=== PATIENT | female | born 1955 | race American Indian/Alaskan Native ===

== ENCOUNTER 2020-01-27 06:16 | Day surgery (SDC) | payer BC, OTHER ==
[~2020-01-27] VITALS: Ht 152.4 cm; Wt 53.5 kg
[~2020-01-27 06:16] MED LIST: ADDAPRIN200 MG PO; ADULT LOW DOSE81 MG PO; ALEVE220 M1 PO; COLESEVELAM HC625 MG PO; FENOFIBRATE160 MG PO; FIBER0.52 GM PO; FOSAMAX70 MG PO; GLARGINE SUB-Q; GLIPIZIDE XL10 MG PO; GLUCOPHAGE850 MG PO; LISINOPRIL2.5 MG PO; MAG-OXIDE400 MG PO; MECLIZINE HCL25 MG PO; NIACIN250 M1 PO; OMEGA 3 1,0001 EACH PO; ROSUVASTATIN CA20 MG PO; VITAMIN D5000 UNIT PO; WELCHOL625 MG PO; ZOCOR20 MG PO; ZOFRAN ODT4 MG SL
--- NOTE | 2020-01-27 07:33 | NUR ---
SWITCHED FLUID TO D5LR PER DR CHAUDHRY FOR A BLOOD GLUCOSE LEVEL OF 78
--- NOTE | 2020-01-27 08:59 | NUR ---
01/27/20 0859 Sheets,Vidhya 0843 PT ARRIVED TO PACU ON 2L VIA NC, PT ASLEEP AND PASSING SMALL AMOUNT OF GAS. VSS. 0846 CBG 352, D5LR STOPPED AND AWARE. PT WAKES EASILY AND DENIES PAIN AND NAUSEA.
--- NOTE | 2020-01-27 10:18 | OR ---
[facility] [address] [place], [place] [address] Signed DATE OF OPERATION: 01/27/2020 SURGEON: Rosa Chaudhry MD PREOPERATIVE DIAGNOSES: 1. Mother with colonic polyps in her 60s. 2. History of colonic polyps, age 65. 3. Internal hemorrhoids. POSTOPERATIVE DIAGNOSES: 1. Small internal hemorrhoids. 2. 3 mm polyps x2 at 25 and 20 cm. 3. 3 mm polyp at 3 cm. PROCEDURE: Colonoscopy with hot biopsy. ESTIMATED BLOOD LOSS: None. INDICATIONS: Kika is a 64-year-old female who returns for a 5-year followup colonoscopy. We know her mother had colonic polyps in her 60s and her sister just had colonic polyps removed at age 64. Kika has had internal hemorrhoids. She has no lower GI complaints. In the office, I gave her a pamphlet on colonoscopy and we reviewed the nature of the test along with the risks including, but not limited to gas bloating, crampy abdominal pain, bleeding, perforation requiring surgery, and missed diagnosis. She also recalls the need for IV conscious sedation. She has always done well with Versed and fentanyl. She has expressed understanding and wished to proceed. DESCRIPTION OF PROCEDURE: Kika was taken into our endoscopy suite and placed in the left lateral decubitus position. She was given 3 mg of Versed and 100 mcg of fentanyl to cover the case. A digital rectal exam was performed and this was unremarkable. The adult colonoscope was introduced and advanced all around into the cecum under direct visualization of camera without difficulty. Her prep was quite excellent. The scope was slowly withdrawn. We could easily see the ileocecal valve and the appendiceal orifice. The scope was slowly withdrawn. We found 2 tiny polyps backed in her distal sigmoid colon. They were easily removed with a hot biopsy forceps. There was no diverticulosis. The rectum was unremarkable except for a tiny polyp just at the top of the anal canal. It was easily Electronically Signed By: ROSA CHAUDHRY MD 01/27/20 1018 PATIENT NAME: KIKA FORRESTER OPERATIVE REPORT DATE OF : 57 REPORT #: [id number] PHYSICIAN: ROSA CHAUDHRY MD PCP: GABRIEL AGUILAR MD REPORT IS CONFIDENTIAL AND NOT TO BE RELEASED WITHOUT AUTHORIZATION [facility] [address] [place] [id number] Signed removed with a hot biopsy forceps. Again, she has small internal hemorrhoid columns. After this, the gas was suctioned out and the colonoscope removed. Kika tolerated procedure quite well. RECOMMENDATIONS: Kika will follow up in 7 to 14 days to review her results. She will stay on the 5-year plan because of her family history. MD LUCILA Chambers/MAGNOL /[id number] cc: MD Rosa Baker MD Copies: GABRIEL AGUILAR MD, ANDREW L MD ~ Electronically Signed By: ROSA CHAUDHRY MD 01/27/20 1018 PATIENT NAME: KIKA FORRESTER KIKI OPERATIVE REPORT DATE OF : 57 REPORT #: [id number] PHYSICIAN: ROSA CHAUDHRY MD PCP: GABRIEL AGUILAR MD REPORT IS CONFIDENTIAL AND NOT TO BE RELEASED WITHOUT AUTHORIZATION
--- NOTE | 2020-01-27 11:50 | NUR ---
PT ALERT, ORIENTED AND HAS HER SISTER WAITING FOR HER FOLLOWING DC. PT HAS HAD PREVIOUS SCOPES SEEMS PREPARED, ALL QUESTIONS ASKED WERE ANSWERED. BLESSING GIVEN. WILL FOLLOW
--- NOTE | 2020-01-28 17:15 | PATH ---
[facility] [address] [place], [place] [address] Signed SPECIMEN(S): A COLON POLYP AT 25 CM SPECIMEN(S): B COLON POLYP AT 3 CM SPECIMEN SOURCE: A. COLON POLYP AT 25 CM B. COLON POLYP AT 3 CM CLINICAL HISTORY: Colonoscopy. Preop: Family history of polyps. Postop: Colon and rectal polyps, internal hemorrhoids. MICROSCOPIC DESCRIPTION: Histologic sections of all submitted blocks are examined by light microscopy. These findings, together with the gross examination, support the pathologic diagnosis. FINAL PATHOLOGIC DIAGNOSIS: A. Colon, polyp at 25 cm, polypectomy: - Fragments of colonic mucosa with no histopathologic abnormality. - Negative for dysplasia or malignancy. B. Colon, polyp at 3 cm, polypectomy: - Hyperplastic polyp. - Negative for dysplasia or malignancy. NAL:cml:C2NR GROSS DESCRIPTION: Two specimens are received in two containers, labeled "." A. The specimen, labeled ", colon polyp at 25 cm," is received in formalin and consists of two dobson soft tissue fragments that measure 0.1 cm in greatest dimension. The specimen is entirely submitted in cassette (A1). B. The specimen, labeled ", colon polyp at 3 cm," is received in formalin and consists of one dobson soft tissue fragment that measures 0.1 cm in greatest dimension. The specimen is entirely submitted in cassette (B1). JS (under the direct supervision of a pathologist) The Gross Description was prepared using a voice recognition system. The report was reviewed for accuracy; however, sound-alike word errors, addition and/or deletions may occur. If there is any question about this report, please contact Client Services. PERFORMING LABORATORY: PATIENT NAME: LUNA FORRESTER PATHOLOGY DATE OF : 57 REPORT #: [id number] PHYSICIAN: YAO PATHOLOGY PCP: GABRIEL AGUILAR MD REPORT IS CONFIDENTIAL AND NOT TO BE RELEASED WITHOUT AUTHORIZATION [facility] [address] [place] [address] Signed The technical component was performed by [employer] [place] [address] (Instructional Support Services Director: Lorraine Morgan MD; CLIA# [id number]). Professional interpretation was performed by [employer] [facility], [address] [address] (CLIA# [id number]). Diagnostician: Fanny Urbano MD Pathologist Electronically Signed 01/28/2020 Copies: ~ PATIENT NAME: LUNA FORRESTER PATHOLOGY DATE OF : 57 REPORT #: [id number] PHYSICIAN: YAO PATHOLOGY PCP: GABRIEL AGUILAR MD REPORT IS CONFIDENTIAL AND NOT TO BE RELEASED WITHOUT AUTHORIZATION
== END 2020-01-27 09:40 | disposition home or self-care (01) ==
LOC: DS 06:16 → OPS 06:16 → DS 06:45 → OPS 09:40 → DS 09:45 → OPS 09:45
PROVIDERS: ATTEND Colon & Rectal Surgery
PROC: 0DBE8ZZ Excision of Large Intestine, Via Natural or Artificial Opening Endoscopic (ICD-10-PCS; principal; 2020-01-27 09:45)
DX: K63.5 Polyp of colon (principal); K64.8 Other hemorrhoids; I10 Essential (primary) hypertension; E11.9 Type 2 diabetes mellitus without complications; K21.9 Gastro-esophageal reflux disease without esophagitis; E55.9 Vitamin D deficiency, unspecified; M81.0 Age-related osteoporosis without current pathological fracture; F32.9 Major depressive disorder, single episode, unspecified; Z83.71 Family history of colonic polyps; Z86.010 Personal history of colon polyps; Z79.899 Other long term (current) drug therapy; Z79.82 Long term (current) use of aspirin; Z79.84 Long term (current) use of oral hypoglycemic drugs; Z88.5 Allergy status to narcotic agent; Z88.7 Allergy status to serum and vaccine
CPT/HCPCS: 99153; G0500; J2250; J3010; J7121

== ENCOUNTER 2024-06-16 15:01 | Emergency (ER) | payer OTHER, BC, MEDICARE ==
[~2024-06-16] VITALS: Ht 152.4 cm; Wt 54.0 kg
[2024-06-16 18:58] VITALS: BP 151/67
== END 2024-06-16 18:58 | disposition home or self-care (01) ==
LOC: ED 15:01
DX: S60.811A Abrasion of right wrist, initial encounter (principal); E11.9 Type 2 diabetes mellitus without complications; Z88.7 Allergy status to serum and vaccine; Z88.5 Allergy status to narcotic agent; Z88.8 Allergy status to other drugs, medicaments and biological substances; Z79.82 Long term (current) use of aspirin; Z79.83 Long term (current) use of bisphosphonates; Z79.899 Other long term (current) drug therapy; W26.0XXA Contact with knife, initial encounter; Y93.G1 Activity, food preparation and clean up
CPT/HCPCS: 99283

== ENCOUNTER 2024-11-26 16:13 | Inpatient (IN) | payer BC, MEDICARE, OTHER ==
[~2024-11-26] VITALS: Ht 152.4 cm; Wt 49.5 kg
--- NOTE | ~2024-11-26 | OR ---
[facility] [address] [place], [place] [address] Draft DATE OF OPERATION: 11/27/2024 SURGEON: Lenny De Jesus MD PREOPERATIVE DIAGNOSIS: Recent hematemesis and profound anemia, hematocrit 25, platelets 156,000. POSTOPERATIVE DIAGNOSES: 1. Grade 4 esophageal varices distal one-half of the esophagus. 2. Mild proximal gastritis and diffuse gastritis without active bleeding or ulceration. PROCEDURE: Esophagogastroduodenoscopy with biopsy. ANESTHESIA: Intravenous sedation, propofol infusion. Nura Bose CRNA. INDICATION: This 69-year-old Citizen Of [place] woman is a patient of Dr. Cao at [facility], who was admitted yesterday through the emergency room having presented with dark black coffee-ground emesis as well as subsequent melena. Her hematocrit was noted to be 15. She was transfused 2 units of packed red cells, now hematocrit of 26. Platelet count was 156,000. The patient has had at least 10 years of epigastric and upper abdominal pain. She does not recall any prior upper endoscopy, though she has had colonoscopy in the past few years by Dr. Jonatan Glass. She had only hemorrhoids at that time. She is admitted at this time to undergo upper endoscopy to better characterize her problem of hematemesis and anemia. She understands the risk of bleeding, infection, and perforation related to upper endoscopy and wished to proceed. FINDINGS: Grade 4 esophageal varices were noted dominantly in the lower one-third of the esophagus. None appeared to have been bleeding. The stomach itself had diffuse gastritis most notably in the proximal stomach. CLOtest biopsy at 50 minutes was equivocal, though may well be positive for H pylori. The duodenum was normal overall. DESCRIPTION OF PROCEDURE: The patient was brought to the endoscopy suite and placed in lateral decubitus position, given intravenous sedation by the bead filler with propofol infusional sedation technique. A bite block was placed. PATIENT NAME: LUNA FORRESTER OPERATIVE REPORT DATE OF : 57 REPORT #: [id number] PHYSICIAN: LENNY DE JESUS MD PCP: GABRIEL CAO MD REPORT IS CONFIDENTIAL AND NOT TO BE RELEASED WITHOUT AUTHORIZATION [facility] [address] [place], [place] [address] Draft An Olympus video upper endoscope was passed in the hypopharynx. The vocal cords appeared normal. There was no sign of varices of the valleculae. The scope was advanced in the esophagus. The proximal esophagus appeared reasonably normal, though in the distal half to one-third, serpiginous varices were noted. The scope was advanced to the stomach, which was insufflated with air. Rugal folds were normal. There was no evidence of active blood or bleeding or clot at this time, though she did have diffuse gastritis. The scope was passed through the pylorus into the duodenum. Biopsies were taken of the duodenum that appeared reasonably normal. Scope was withdrawn and biopsies then taken of the antrum and also in the proximal stomach for MISTI and pathologic assessment. There were no gastric varices. The scope was withdrawn confirming distal esophageal varices throughout. Additional biopsies were deemed quite inadvisable obviously. Further withdrawal of scope showed no other abnormality. CONCLUDING DIAGNOSES: Coffee-ground emesis and anemia may have been related to diffuse gastritis cause or possibly a varix that caused bleeding. Right now, no sign of active bleeding including the varices. PLAN: We will initiate PPI medication orally on a b.i.d. basis. Consider also Carafate slurry 1 g p.o. q.i.d. Consideration of a beta jess to decrease portal venous hypertension and consideration of underlying cause that may give portal hypertension including cirrhosis of the liver, etc. We will review this with Dr. Luna, her hospitalist. MD ADINA Das/MODL /[id number] cc: MD David Baker MD Copies: GABRIEL CAO MD PATIENT NAME: LUNA FORRESTER OPERATIVE REPORT DATE OF : 57 REPORT #: [id number] PHYSICIAN: LENNY DE JESUS MD PCP: GABRIEL CAO MD REPORT IS CONFIDENTIAL AND NOT TO BE RELEASED WITHOUT AUTHORIZATION [facility] [address] [place] [address] [place], [place] [address] Draft ~ PATIENT NAME: LUNA FORRESTER OPERATIVE REPORT DATE OF : 57 REPORT #: [id number] PHYSICIAN: LENNY DE JESUS MD PCP: GABRIEL CAO MD REPORT IS CONFIDENTIAL AND NOT TO BE RELEASED WITHOUT AUTHORIZATION
[~2024-11-26 16:13] MED LIST changes: -GLARGINE SUB-Q; -GLUCOPHAGE850 MG PO; +METFORMIN HCL500 MG PO; +TOUJEO MAX300 UNIT/1 SUB-Q
[2024-11-26] MEDS ORDERED: PANTOPRAZOLE SODIUM 40 MG/10 ML VIAL IV ONE (16:30)
[2024-11-26] MEDS ORDERED: NOVOLOG FL100 UNIT/1 SUB-Q (16:41)
[2024-11-26] MEDS ORDERED: GABAPENTIN100 MG PO (16:41)
[2024-11-26] MEDS ORDERED: ATORVASTATIN CA40 MG PO (16:42)
[2024-11-26 16:49] LABS: BASOPHILS 1.2 % (0.1-1.2); EOSINOPHILS 1.2 % (0.7-5.8); LYMPHOCYTES 30.8 % (19.3-51.7); MCH 24.3 PG (25.6-32.2); MCHC 31.5 g/dL (32.2-35.5); MCV 77.0 fL (79.4-94.8); MONOCYTES 5.2 % (4.7-12.5); NEUTROPHILS 61.2 % (34.0-71.1); RBC 2.39 M/uL (3.93-5.22)
[2024-11-26 16:59] LABS: INR 0.95 (0.80-1.30); PROTIME 12.0 Sec (11.2-14.2)
[2024-11-26 17:36] LABS: ABO O; RH POSITIVE
[2024-11-26 17:36] LABS: ABO O; ANTIBODY SCREEN NEGATIVE; IS CROSSMATCH COMPATIBLE; RH POSITIVE
[2024-11-26 17:39] LABS: ALT (SGPT) 39.0 U/L (14-59); AST (SGOT) 35.0 U/L (15-37); GLOMERULAR FILTRATION RATE,EST 40.0 mL/min (>60); PROTEIN, TOTAL 7.4 g/dL (6.4-8.2); UREA NITROGEN 25.0 mg/dL (7-18)
[2024-11-26] MEDS ORDERED: SODIUM CHLORIDE 0.9% 1,000 ML IV PRN (18:00)
[2024-11-26] MEDS ORDERED: Insulin Regular, Human 100 UNIT/ML ML IV ONE (18:00)
[2024-11-26] MEDS ORDERED: IBLOOD GLUCOSE TEST STRIP 1 EA TEST XX PRN (18:15)
[2024-11-26] MEDS ORDERED: GLUCAGON,HUMAN RECOMBINANT 1 MG/ML VIAL SUB-Q PRN (18:15)
[2024-11-26] MEDS ORDERED: DEXTROSE 5% 1,000 ML IV PRN (18:15)
[2024-11-26] MEDS ORDERED: DEXTROSE 50% 50 ML SYR IV PRN ×2 (18:15)
[2024-11-26 19:46] VITALS: BP 130/60
--- NOTE | 2024-11-26 19:50 | NUR ---
pt ARRIVED TO THE FLOOR VIA STRETCHER. pt PRBC'S INFUSING. pt UP TO THE BSC. ASSESSMENT AND ADMISSION DONE. VITAL SIGNS DONE. pt ABLE TO TRANSFER TO THE BED VIA SBA. ICE WATER GIVEN TO THE pt. pt NPO AT MIDNIGHT. IV ASSESSED, WNL. pt DENIES ANY OTHER NEEDS AT THIS TIME. CALL LIGHT WITHIN REACH.
--- NOTE | 2024-11-26 20:22 | NUR ---
pt PRBC'S FINISHED AT 2014. NO S/SX OF TRASFUSION REACTION. VSS. ICE WATER PROVIDED. pt DENIES ANY OTHER NEEDS AT THIS TIME. CALL LIGHT WITHIN REACH. IV ASSESSED, WNL.
[2024-11-26 20:30] VITALS: BP 130/60
--- NOTE | 2024-11-26 20:50 | NUR ---
THIS RN SPOKE TO THE MD ABOUT THE pt ORDERS. MD WENT IN TO SPEAK TO pt AND PLACED NEW ORDERS IN [facility]. pt DENIES ANY OTHER NEEDS AT THIS TIME. CALL LIGHT WITHIN REACH.
[2024-11-26] MEDS ORDERED: GABAPENTIN 100 MG CAP PO SCH (21:00)
[2024-11-26] MEDS ORDERED: IBLOOD GLUCOSE TEST STRIP 1 EA TEST VI SCH (21:00)
[2024-11-26 21:13] LABS: BASOPHILS 1.0 % (0.1-1.2); EOSINOPHILS 1.7 % (0.7-5.8); LYMPHOCYTES 32.2 % (19.3-51.7); MCH 24.6 PG (25.6-32.2); MCHC 31.5 g/dL (32.2-35.5); MCV 78.1 fL (79.4-94.8); MONOCYTES 4.6 % (4.7-12.5); NEUTROPHILS 60.3 % (34.0-71.1); RBC 3.01 M/uL (3.93-5.22)
--- NOTE | 2024-11-26 21:30 | NUR ---
IN RM TO ADMINISTER pt NIGHT TIME MEDS. pt ABLE TO TAKE PO MEDS. pt DENIES ANY OTHER NEEDS AT THIS TIME. CALL LIGHT WITHIN REACH.
[2024-11-26 21:31] LABS: ALT (SGPT) 33.0 U/L (14-59); AST (SGOT) 31.0 U/L (15-37); GLOMERULAR FILTRATION RATE,EST 49.0 mL/min (>60); PROTEIN, TOTAL 7.2 g/dL (6.4-8.2); UREA NITROGEN 24.0 mg/dL (7-18)
--- NOTE | 2024-11-26 23:08 | NUR ---
pt RESTING IN THE BED WITH EYES CLOSED ON RIGHT SIDE. RR EVEN AND UNLABORED. CALL LIGHT WITHIN REACH.
--- NOTE | 2024-11-26 23:48 | NUR ---
pt UP TO THE BR. WATER TAKEN AWAY DUE TO pt BEING NPO AT MIDNIGHT. . pt DENIES DIZINESS WITH STANDING. pt DENIES ANY OTHER NEEDS AT THIS TIME. CALL LIGHT WITHIN REACH.
[2024-11-27] VITALS (12 sets, daily range): BP systolic 124–136; BP diastolic 52–63
--- NOTE | 2024-11-27 01:02 | NUR ---
in rm to do vital signs and assessment. PT resting in the bed. bowel tones active. no emesis or BM at this time. PT denies any other needs at this time. call light within reach.
[2024-11-27 01:03] LABS: BASOPHILS 1.0 % (0.1-1.2); EOSINOPHILS 2.2 % (0.7-5.8); LYMPHOCYTES 33.9 % (19.3-51.7); MCH 24.5 PG (25.6-32.2); MCHC 31.8 g/dL (32.2-35.5); MCV 76.9 fL (79.4-94.8); MONOCYTES 5.1 % (4.7-12.5); NEUTROPHILS 57.3 % (34.0-71.1); RBC 2.86 M/uL (3.93-5.22)
[2024-11-27 01:37] LABS: IS CROSSMATCH COMPATIBLE
[2024-11-27 01:55] LABS: UREA NITROGEN 21.0 mg/dL (7-18)
[2024-11-27 02:19] LABS: GLOMERULAR FILTRATION RATE,EST 55.0 mL/min (>60)
--- NOTE | 2024-11-27 02:45 | NUR ---
pt RESTING IN THE BED. PRBC'S STARTED PER MD ORDER. pt HAS NO S/SX OF INFUSION REACTION. NO OTHER NEEDS AT THIS TIME. CALL LIGHT WITHIN REACH.
--- NOTE | 2024-11-27 05:05 | NUR ---
pt DONE WITH SECOND UNIT OF PRBC'S. VITAL SIGNS DONE. NO S/SX OF TRANSFUSION REACTION. pt DENIES ANY OTHER NEEDS AT THIS TIME. CALL LIGHT WITHIN REACH.
[2024-11-27 05:51] LABS: BASOPHILS 1.4 % (0.1-1.2); EOSINOPHILS 2.8 % (0.7-5.8); LYMPHOCYTES 35.3 % (19.3-51.7); MCH 24.9 PG (25.6-32.2); MCHC 32.1 g/dL (32.2-35.5); MCV 77.5 fL (79.4-94.8); MONOCYTES 5.6 % (4.7-12.5); NEUTROPHILS 54.6 % (34.0-71.1); RBC 3.46 M/uL (3.93-5.22)
[2024-11-27 06:07] LABS: ALT (SGPT) 30.0 U/L (14-59); AST (SGOT) 29.0 U/L (15-37); GLOMERULAR FILTRATION RATE,EST 55.0 mL/min (>60); PROTEIN, TOTAL 6.9 g/dL (6.4-8.2); UREA NITROGEN 19.0 mg/dL (7-18)
--- NOTE | 2024-11-27 07:06 | NUR ---
Pt report received from GENIA Wayne. Pt is resting quietly in bed, awake and alert, oriented x4. Denies needs at this time. Side rails up x4, call light in reach. White board updated.
[2024-11-27] MEDS ORDERED: LACTATED RINGER'S 1,000 ML IV SCH (08:15)
--- NOTE | 2024-11-27 08:45 | NUR ---
INTO SEE PATIENT. PERSONAL HEALTH INFORMATION REVIEWED. PATIENT LIVES AT HOME WITH HER SISTER. NO STEPS INTO THE HOME. PATIENT DOES NOT USE ANY DME. PATIENT DRIVES AT BASELINE. PATIENT STATES THEY DO HAVE DIFFCULTY PAYING UTILITIES. LET PATIENT KNOW TO REACH OUT TO [facility] OR [facility] FOR ASSISTANCE. PATIENT STATES A FAMILY MEMBER WILL PICK HER UP AT TIME OF DISCHARGE.
--- NOTE | 2024-11-27 08:54 | NUR ---
PATIENT IS IN HER BED AT THIS TIME, MANAGER HEART FAILURE CHARTED VITALS AND I&O'S, CALL LIGHT WITH IN REACH AND NOTHING ELSE NEEDED AT THIS TIME.
--- NOTE | 2024-11-27 08:54 | NUR ---
THIS RN ASKED REGARDING AN EKG PRE SCOPE. MD WITH NO FURTHER ORDERS AT THIS TIME.
--- NOTE | 2024-11-27 08:55 | NUR ---
Dr. Luna in with pt. Pt verbalized understanding of consent that Dr. Bolton reviewed with her and signed the consent, this RN witnessed. LR on straight tubing is in room, LR at 125ml/hr per EMAR running on IV pump. IV protonix administered per emar. Pt family member in room. Urine specimen is needed (per order).
[2024-11-27] MEDS ORDERED: PANTOPRAZOLE SODIUM 40 MG/10 ML VIAL IV SCH (09:00)
--- NOTE | 2024-11-27 09:23 | NUR ---
UR CLINICAL REVIEW: 2 MN BO, MEETS INPT FOR GI BLEED AND DON. BLOOD TRANSFUSION, IV MEDICATIONS, TREND LABS, SURGICAL CONSULT, IV FLUIDS MEDICARE INPT 11/26/2024 @ 1802 ORDER MATCHES REG NO AUTH REQUIRED PER MEDICARE RULES PLAN TO DC TO HOME WHEN MEDICALLY STABLE.
[2024-11-27] MEDS ORDERED: PAIN RELIEF325 M1 PO (09:50)
[2024-11-27] MEDS ORDERED: PREVIDENT 500051 GM MM (09:51)
[2024-11-27] MEDS ORDERED: ARTIFICIAL TEAR15 M6 OU (09:51)
[2024-11-27] MEDS ORDERED: BIOTENE PBF473 ML MM (09:54)
--- NOTE | 2024-11-27 09:54 | NUR ---
MED REC COMPLETE
--- NOTE | 2024-11-27 10:49 | CONS ---
[facility] [address] [place], [place] [address] Signed DATE OF CONSULTATION: 11/27/2024 CONSULTING PHYSICIAN: Lenny De Jesus MD. REQUESTING PHYSICIAN: Dr. Luna. PROBLEM: Profound anemia and hematemesis. HISTORY OF PRESENT ILLNESS: This 69-year-old French woman has long-standing epigastric pain and "heartburn." Medications that she has taken for this in the past have been ineffective. She presented to the emergency room yesterday and was thoroughly evaluated by Dr. Bhakta, having felt poorly earlier in the day and an episode of vomiting and emesis which was "black colored." She also had later apparent melena. She has had symptoms particularly worse when eating for the past number of years. She has had issues with stool incontinence as well from time to time. She did undergo colonoscopy by Dr. Jonatan Glass showing only internal hemorrhoids. The patient takes aspirin 81 mg a day, but no other intensive NSAID use. She does not smoke. CURRENT MEDICINES: Include: 1. Gabapentin. 2. Insulin. 3. Atorvastatin. 4. Aspirin low-dose 81 mg. 5. Glucophage. 6. Solostar. REVIEW OF SYSTEMS: She denies any dysphagia. Denies any lower abdominal pain or diarrhea. She does have "heartburn" and epigastric pain perpetually. Admission, hematocrit was 18.4 with a platelet count of 156,000. Creatinine of 1.44. The patient has undergone a 2 unit blood transfusion and her lab study currently shows a hematocrit of 26.8, platelets 142,000. Coag studies show an INR of 0.95. Chem profile is normal, creatinine now 1.09, previously 1.20. Alkaline phosphatase is still elevated now at 306, previously 334. Electronically Signed By: LENNY DE JESUS MD 11/27/24 1049 PATIENT NAME: LUNA FORRESTER CONSULTATION DATE OF : 57 REPORT #: [id number] PHYSICIAN: LENNY DE JESUS MD PCP: GABRIEL AGUILAR MD REPORT IS CONFIDENTIAL AND NOT TO BE RELEASED WITHOUT AUTHORIZATION [facility] [address] [place], [place] [address] Signed PHYSICAL EXAMINATION: GENERAL: A relatively thin French woman who is alert and oriented without sign of diaphoresis. She is accompanied by her [id number]. Her BMI is 21.3. NECK: Trachea is midline. HEENT: Mucous membranes are moist. CHEST: Clear. HEART: Regular without murmur. ABDOMEN: Flat and soft and there is no focal mass or tenderness. She has no ascites. EXTREMITIES: Show no clubbing, cyanosis, or edema. VITAL SIGNS: Currently show a temperature of 98.1, pulse 95, blood pressure 129/63. LAB STUDIES: Are as previously noted. ASSESSMENT: The patient has had hematemesis and likely chronic progressive anemia. Upper endoscopy well indicated particular given her symptoms. She is clinically stable for such an intervention. Quite notably, she does not have an IV running. She should be made n.p.o. and IVs administered anticipating upper endoscopy today. She is on pantoprazole 40 mg b.i.d. The risk of bleeding, infection, and perforation related to upper endoscopy was reviewed with her. She understands and wished to proceed. MD ADINA Das/SCOT /[id number] cc: Dr. Luna Copies: ~ Electronically Signed By: LENNY DE JESUS MD 11/27/24 1049 PATIENT NAME: LUNA FORRESTER CONSULTATION DATE OF : 57 REPORT #: [id number] PHYSICIAN: LENNY DE JESUS MD PCP: GABRIEL AGUILAR MD REPORT IS CONFIDENTIAL AND NOT TO BE RELEASED WITHOUT AUTHORIZATION
[2024-11-27] MEDS ORDERED: PHARMACY RENAL DOSE ADJUSTMENT 1 DOSE MISC PO SCH (12:00)
--- NOTE | 2024-11-27 12:10 | NUR ---
PC to Dr. Luna to request an order for accuchecks on this pt as she has a history of DMII, uncontrolled, and is NPO until after a procedure later this shift. Verbal order obtained for Accuchecks Q6H at this time.
--- NOTE | 2024-11-27 12:25 | NUR ---
PATIENT WAS IN HER CHAIR AT THIS TIME, DEEP TISSUE MASSAGE THERAPIST ASSISTED TO THE RESTROOM, CHANGED PATIENTS BEDDING, SET UP HER CHAIR FOR HER TO SIT IN, GOT AN SCD MACHINE AND SCDS HOOKED UP AND ON, DEEP TISSUE MASSAGE THERAPIST CHARTED VITALS AND OUTPUT. GOT THE UA AND SENT TO LAB, CALL LIGHT WITH IN REACH AND NOTHING ELSE NEEDED AT THIS TIME.
--- NOTE | 2024-11-27 12:37 | NUR ---
PT RESTING WITH EYES CLOSED, RESP EVEN/UNLABORED. IV ABX COMPLETED, SALINE LOCKED. PT OFFERED LUNCH TRAY, DECLINES AT THIS TIME STATES SHE IS NOT VERY HUNGRY. PT LEFT WITH CALL LIGHT WITHIN REACH, DENIES ANY OTHER NEEDS AT THIS TIME.
[2024-11-27 12:41] LABS: BLOOD/HGB, URINE SMALL (Negative); KETONE, URINE NEGATIVE (Negative); LEUK ESTERASE, URINE SMALL (negative); NITRITE, URINE NEGATIVE (negative)
[2024-11-27 12:56] LABS: BACTERIA, URINE NONE SEEN /hpf (negative); CASTS, URINE NONE SEEN \\lpf; CRYSTALS, URINE NONE SEEN (0-1+); EPITHELIAL CELLS, URINE SQUAMOUS 1+ /lpf (0-1+); REFLEX CULTURE, URINE Yes (No)
--- NOTE | 2024-11-27 13:53 | NUR ---
VISITED DURING SPIRITUAL CARE ROUNDS. PT IN OVERALL GOOD SPIRITS, EXPRESSED GRATITUDE FOR IMPROVEMENT. CHEF & OWNER PROVIDED SUPPORTIVE PRESENCE, HOSPITALITY, PRAYER.
[2024-11-27] MEDS ORDERED: IBLOOD GLUCOSE TEST STRIP 1 EA TEST VI SCH (14:00)
[2024-11-27] MEDS ORDERED: LIDOCAINE HCL 2% 5 ML SDV ONE (17:08)
--- NOTE | 2024-11-27 17:50 | NUR ---
11/27/24 1750 Melba Trevino 1738-PT ARRIVES TO PACU, VIA STRETCHER, PT RESTING ON LT SIDE, NOT RESPONSIVE TO TACTILE OR VERBAL STIMULI. VSS ON 6L VIA NC, RR EVEN AND UNLABORED. 1740-BLOOD SUGAR CHECKED PER ANESTHESIA REQUEST, 209 PER MONITOR.
[2024-11-27] MEDS ORDERED: PROPRANOLOL HCL 20 MG TAB PO SCH (18:11)
--- NOTE | 2024-11-27 18:15 | NUR ---
Pt report received from GENIA Acevedo.
--- NOTE | 2024-11-27 18:28 | NUR ---
Pt back to room at 1819 hours. Pt is A&O, slightly sleepy. Pt able to self transfer with SBA from [place] to bed. SCD's on, pt provided with iced water to sip. No c/o nausea. VSS. Assessment done at this time.
--- NOTE | 2024-11-27 18:46 | NUR ---
Pt does not have a diet order entered; however, she has a hx of uncontrolled DM2. She is requesting to advance her diet, and she was provided with sugar free jello to try first, at this time. Pt is tolerating water and jello well without c/o nausea. Side rails up, bedside table and personal belongings in reach, call light in reach. SCDs on.
--- NOTE | 2024-11-27 19:35 | NUR ---
RECEIVED REPORT. POST-OP VITALS. PT DENIES PAIN OR NAUSEA. SUPPORTIVE FAMILY IN ROOM, PROVIDED REFRESHMENTS. NO OTHER NEEDS, CALL LIGHT INREACH
--- NOTE | 2024-11-27 20:31 | NUR ---
POST-OP VITALS, NO NEEDS PRESENTLY, CALL LIGHT INREACH
--- NOTE | 2024-11-27 20:40 | NUR ---
VITALS, ASSESSMENT. ASSISTED PT TO BATHROOM 1PA WITH IV POLE. PT REPORTS MILD SHAKINESS, THOUGH NO DIZZINESS. LARGE LOOSE BM X1. CALL LIGHT IN REACH
[2024-11-27] MEDS ORDERED: DEXTROSE 5% 1,000 ML IV PRN (20:45)
[2024-11-27] MEDS ORDERED: IBLOOD GLUCOSE TEST STRIP 1 EA TEST XX PRN (20:45)
[2024-11-27] MEDS ORDERED: DEXTROSE 50% 50 ML SYR IV PRN ×2 (20:45)
[2024-11-27] MEDS ORDERED: GLUCAGON,HUMAN RECOMBINANT 1 MG/ML VIAL SUB-Q PRN (20:45)
--- NOTE | 2024-11-27 20:48 | NUR ---
DISCUSSED DIET AND BLOOD GLUCOSE MONITORING WITH MD. SEE NEW DIET AND INSULIN ORDERS
[2024-11-27] MEDS ORDERED: AMOXICILLIN 500 MG CAP PO SCH (21:00)
[2024-11-27] MEDS ORDERED: IBLOOD GLUCOSE TEST STRIP 1 EA TEST XX SCH (21:00)
[2024-11-27] MEDS ORDERED: BISMUTH SUBSALICYLATE 262 MG CHEW PO SCH (21:00)
[2024-11-27] MEDS ORDERED: INSULIN LISPRO 100 UNIT/ML ML SUB-Q SCH (21:00)
[2024-11-27] MEDS ORDERED: SUCRALFATE 1 GM TAB PO SCH (21:00)
[2024-11-27] MEDS ORDERED: DOXYCYCLINE HYCLATE 100 MG CAP PO SCH (21:00)
[2024-11-27] MEDS ORDERED: PANTOPRAZOLE SODIUM 40 MG TABEC PO SCH (21:00)
--- NOTE | 2024-11-27 21:51 | NUR ---
LAST SET OF POST-OP VITALS, EVENING MEDS. NO OTHER NEEDS, CALL LIGHT INREACH
--- NOTE | 2024-11-27 22:26 | NUR ---
call light answered, iv pump alarming. iv abx complete, iv site wnl and flushed easily w/ brisk blood return. no additional needs or concerns, site now saline locked per primary rn request. call light and personal belongings in reach.
--- NOTE | 2024-11-27 23:26 | NUR ---
PT RESTING IN BED WITH EYES CLOSED, RISE AND FALL OF CHEST OBSERVED. CALL LIGHT IN REACH
--- NOTE | 2024-11-28 01:17 | NUR ---
PT RESTING IN BED WITH EYES CLOSED, RISE AND FALL OF CHEST OBSERVED. CALL LIGHT IN REACH
[2024-11-28 01:38] VITALS: BP 120/60
--- NOTE | 2024-11-28 01:39 | NUR ---
SPECIMEN COLLECTOR OBTAINED VITALS. NO NEW I&O AT THIS TIME. PT STATES NO NEEDS AT THIS TIME. CALL LIGHT WITHIN REACH.
--- NOTE | 2024-11-28 01:44 | NUR ---
DEVELOPMENT EXPERT SBA TO BATHROOM. PT VOIDED AND HAD BM. PT GIVEN CLEAN BREIF. PT ASSISTED BACK TO BED. NO FURTHER NEEDS STATED AT THIS TIME. CALL LIGHT WITHIN REACH.
--- NOTE | 2024-11-28 03:03 | NUR ---
PT RESTING IN BED WITH EYES CLOSED, RISE AND FALL OF CHEST OBSERVED. CALL LIGHT IN REACH
[2024-11-28 05:12] VITALS: BP 111/52
--- NOTE | 2024-11-28 05:12 | NUR ---
PT RESTING WITH EYES CLOSED, RISE AND FALL OF CHEST OBSERVED. CALL LIGHT IN REACH
--- NOTE | 2024-11-28 05:13 | NUR ---
LOCK UP WORKER OBTAINED VITALS AND I&O. PT ICE WATER REFILLED. PT STATES NO FURTHER NEEDS AT THIS TIME. CALL LIGHT WITHIN REACH.
[2024-11-28 05:58] LABS: GLOMERULAR FILTRATION RATE,EST 63.0 mL/min (>60); UREA NITROGEN 13.0 mg/dL (7-18)
[2024-11-28 06:59] LABS: BASOPHILS 1.1 % (0.1-1.2); EOSINOPHILS 2.0 % (0.7-5.8); LYMPHOCYTES 27.9 % (19.3-51.7); MCH 24.9 PG (25.6-32.2); MCHC 32.5 g/dL (32.2-35.5); MCV 76.6 fL (79.4-94.8); MONOCYTES 5.6 % (4.7-12.5); NEUTROPHILS 63.2 % (34.0-71.1); RBC 3.50 M/uL (3.93-5.22)
--- NOTE | 2024-11-28 07:04 | NUR ---
Pt report received from GENIA Pastor. Pt is resting supine in bed, visitors at bedside. White board updated. Pt denied any needs at this time. Reviewed pt copy of findings with her. Call light in reach.
[2024-11-28] MEDS ORDERED: POTASSIUM CHLORIDE 10 MEQ TABCR PO ONE (08:15)
[2024-11-28] MEDS ORDERED: MAGNESIUM SULFATE 2 GM/50 ML BAG IV SCH (08:15)
[2024-11-28] MEDS ORDERED: GABAPENTIN 100 MG CAP PO SCH (09:00)
[2024-11-28 09:16] VITALS: BP 127/57
--- NOTE | 2024-11-28 09:21 | NUR ---
INTO SEE PATIENT. PATIENT SITTING IN BED EATING BREAKFAST FAMILY AT BEDSIDE. PATIENT POTENTIALLY BEING D/C'D TODAY. FAMILY TO TAKE HOME AT TIME OF DISCHARGE. NO CM NEEDS.
--- NOTE | 2024-11-28 09:24 | NUR ---
PATIENT IS IN HER BED AT THIS TIME, FAMILY IS IN THE ROOM, NATIONAL VAN OWNER OPERATOR CHARTED VITALS AND I&O'S, GOT THE PATIENT FRESH ICE WATER, A WARM BLANKET, CALL LIGHT WITH IN REACH AND NOTHING ELSE NEEDED AT THIS TIME.
[2024-11-28 09:30] VITALS: BP 127/57
[2024-11-28] MEDS ORDERED: PANTOPRAZOLE SO40 MG PO (10:14)
[2024-11-28] MEDS ORDERED: PEPTO-BISMOL262 MG PO (10:15)
[2024-11-28] MEDS ORDERED: TETRACYCLINE H500 M1 PO (10:17)
[2024-11-28] MEDS ORDERED: METRONIDAZOLE500 MG PO (10:18)
[2024-11-28] MEDS ORDERED: MACROBID 100 M100 MG PO (10:19)
[2024-11-28] MEDS ORDERED: PROPRANOLOL HCL20 MG PO (10:20)
[2024-11-28] MEDS ORDERED: SUCRALFATE1 GM PO (10:21)
--- NOTE | 2024-11-28 11:38 | NUR ---
PATIENT IN BED AT THIS TIME. AMBULANCE DRIVER PARAMEDIC ASSISTED PATIENT TO BATHROOM AND THEN BACK TO BED. CALL LIGHT WITHIN REACH, NO FURTHER NEEDS AT THIS TIME.
--- NOTE | 2024-11-28 14:52 | NUR ---
PATIENT IN BED AT THIS TIME. FORKLIFT DRIVER REMOVED PATIENTS IV CATHETERS PER GENIA VARGAS.
[2024-11-28 15:00] VITALS: BP 120/54
--- NOTE | 2024-11-28 15:01 | NUR ---
PATIENT WAS IN BED AT THIS TIME, RECYCLING OR RUBBISH COLLECTOR CHARTED VITALS AND I&O'S, ISSA CLARK TOOK OUT PATIENTS IV, I ASSISTED PATIENT IN PACKING THINGS UP. CALL LIGHT WITH IN REACH AND NOTHING ELSE NEEDED AT THIS TIME.
[2024-12-01] MEDS ORDERED: AMOXICILLIN875 MG PO (11:32)
== END 2024-11-28 15:05 | disposition home or self-care (01) | DRG 378 ==
LOC: ED 16:13 → MS 18:24
PROVIDERS: Emergency Medicine; Surgery; ADMIT Student in an Organized Health Care Education/Training Program; ATTEND Student in an Organized Health Care Education/Training Program
PROC: 3E03329 Introduction of Other Anti-infective into Peripheral Vein, Percutaneous Approach (ICD-10-PCS; 2024-11-27)
PROC: 0DJ08ZZ Inspection of Upper Intestinal Tract, Via Natural or Artificial Opening Endoscopic (ICD-10-PCS; 2024-11-27)
PROC: 30233N1 Transfusion of Nonautologous Red Blood Cells into Peripheral Vein, Percutaneous Approach (ICD-10-PCS; principal; 2024-11-27 16:30)
DX: K29.71 Gastritis, unspecified, with bleeding (principal); D62 Acute posthemorrhagic anemia; N17.9 Acute kidney failure, unspecified; N39.0 Urinary tract infection, site not specified; I85.00 Esophageal varices without bleeding; Z66 Do not resuscitate; E11.22 Type 2 diabetes mellitus with diabetic chronic kidney disease; N18.9 Chronic kidney disease, unspecified; E11.65 Type 2 diabetes mellitus with hyperglycemia; E11.42 Type 2 diabetes mellitus with diabetic polyneuropathy; K64.8 Other hemorrhoids; F12.90 Cannabis use, unspecified, uncomplicated; B96.81 Helicobacter pylori [H. pylori] as the cause of diseases classified elsewhere; E78.5 Hyperlipidemia, unspecified; Z79.4 Long term (current) use of insulin; Z79.84 Long term (current) use of oral hypoglycemic drugs; Z79.899 Other long term (current) drug therapy; Z88.7 Allergy status to serum and vaccine; Z88.5 Allergy status to narcotic agent; Z88.8 Allergy status to other drugs, medicaments and biological substances
CPT/HCPCS: 00813; 36415; 36430; 80048; 80053; 81001; 83036; 83735; 85025; 85060; 85610; 86850; 86900; 86901; 86922; 87088; A9270; J0696; J1815; J2003; J2470; J2704; J3475; J7030; J7121; P9016

== ENCOUNTER 2025-03-17 11:58 | Day surgery (SDC) | payer BC, MEDICARE, OTHER ==
[~2025-03-17] VITALS: Ht 154.9 cm; Wt 48.6 kg
[~2025-03-17 11:58] MED LIST changes: +AMOXICILLIN875 MG PO; +ARTIFICIAL TEAR15 M6 OU; +ATORVASTATIN CA40 MG PO; +BIOTENE PBF473 ML MM; +GABAPENTIN100 MG PO; +IBLOOD GLUCOSE TEST STRIP 1 EA TEST VI PRN; +LACTATED RINGER'S 1,000 ML IV SCH; +LIDOCAINE HCL 1% 5 ML SDV INJ ONE; +LO-DOSE ASPIRIN81 MG PO; +MACROBID 100 M100 MG PO; +METRONIDAZOLE500 MG PO; +MIDAZOLAM HCL 5 MG/5 ML VIAL IV PRN; +NOVOLOG FL100 UNIT/1 SUB-Q; +PAIN RELIEF325 M1 PO; +PANTOPRAZOLE SO40 MG PO; +PEPTO-BISMOL262 MG PO; +PREVIDENT 500051 GM MM; +PROPRANOLOL HCL20 MG PO; +SUCRALFATE1 GM PO; +TETRACYCLINE H500 M1 PO; +fentaNYL citrate 100 MCG/2 ML VIAL IV PRN
[2025-03-17 12:15] VITALS: BP 127/53
[2025-03-17] MEDS ORDERED: MIDAZOLAM HCL 5 MG/5 ML VIAL ONE (13:40)
[2025-03-17] MEDS ORDERED: fentaNYL citrate 100 MCG/2 ML VIAL ONE (13:40)
--- NOTE | 2025-03-17 13:51 | NUR ---
03/17/25 1351 Maddy Steel LE 1346: PT ARRIVES TO PACU ASLEEP, BUT RESPONSIVE TO TACTILE STIMULI. LE 1350: PT IS IS AUDIBLY PASSING GAS.
[2025-03-17 14:23] VITALS: BP 114/58
--- NOTE | 2025-03-18 11:16 | OR ---
[facility] [address], [place] [address] Signed DATE OF OPERATION: 03/17/2025 SURGEON: Lenny De Jesus MD PREOPERATIVE DIAGNOSES: 1. History of adenomatous polyps 2019 (Dr. Glass). 2. Family history of colon cancer (father). 3. Known history of internal hemorrhoids. POSTOPERATIVE DIAGNOSES: 1. Small polyp, left colon, excised. 2. Minimal diverticula. 3. Internal hemorrhoids. PROCEDURES: Total colonoscopy to cecum with cold morcellation polypectomy x1. ANESTHESIA: Intravenous sedation, fentanyl 100 mcg, and Versed 4 mg. INDICATION: This 69-year-old woman is a patient of Dr. Cao at [facility]. She underwent colonoscopy in [address] Jonatan Glass and was recommended to have repeat in 5 years. Previous colonoscopy had shown internal hemorrhoids and 3 mm polyps. Hyperplasia dominant was noted. She had some rectal bleeding over four months ago, but none in recent times. She is admitted to undergo colonoscopy for surveillance. She understands the risk of bleeding, infection, and perforation. FINDINGS: The prep was good. Complete colonoscopy was undertaken of the cecum. There were few scattered diverticula of the sigmoid and one small polyp of the proximal descending colon, which was excised. Internal hemorrhoids were noted as well. There were no other findings of note. DESCRIPTION OF PROCEDURE: The patient was brought to the endoscopy suite and placed in lateral decubitus position, given intravenous sedation to the point of slurred speech and nystagmus. Digital rectal examination was normal. There were some hemorrhoidal changes externally noted, however. An Olympus video colonoscope was passed in the rectum and manipulated throughout the colon ultimately intubating the cecum itself. The ileocecal valve and appendiceal Electronically Signed By: LENNY DE JESUS MD 03/18/25 1116 PATIENT NAME: LUNA FORRESTER OPERATIVE REPORT DATE OF : 57 REPORT #: [id number] PHYSICIAN: LENNY DE JESUS MD PCP: GABRIEL CAO MD REPORT IS CONFIDENTIAL AND NOT TO BE RELEASED WITHOUT AUTHORIZATION [facility] [address], [place] [address] Signed orifice were normal. The scope was withdrawn from that point. Examination throughout undertaken showed no sign of abnormality until the proximal descending colon where a small polyp was noted. This was excised with cold morcellation technique. Complete removal of the polyp was accomplished. The scope was withdrawn and a few scattered diverticula were noted, though it was not a dominant feature by any means. Retroflexed view of the rectum confirmed some internal hemorrhoidal change. There was no sign of bleeding. Scope was removed. The patient was taken to the recovery room in good condition. CONCLUDING DIAGNOSIS: Small polyp, proximal descending colon and internal hemorrhoids. PLAN: Recommend repeat colonoscopy in 5 years, sooner if symptoms should develop. Recommend high-fiber diet. If she should have rectal bleeding again, consideration will be made for hemorrhoidal banding in the office setting. She will return to the ongoing care of Dr. Gabriel Cao at [facility]. MD ADINA Das/SCOT /[id number] cc: Dr. Gabriel Cao [facility] Copies: ~ Electronically Signed By: LENNY DE JESUS MD 03/18/25 1116 PATIENT NAME: LUNA FORRESTER KIKI OPERATIVE REPORT DATE OF : 57 REPORT #: [id number] PHYSICIAN: LENNY DE JESUS MD PCP: GABRIEL CAO MD REPORT IS CONFIDENTIAL AND NOT TO BE RELEASED WITHOUT AUTHORIZATION
--- NOTE | 2025-03-20 12:52 | PATH ---
[facility] [address] [place], [place] [address] Signed SPECIMEN(S): A DESCENDING LEFT COLON POLYP SPECIMEN SOURCE: A. DESCENDING LEFT COLON POLYP CLINICAL HISTORY: Rectal bleeding, family history of colon CA, post-polyp A) polyp FINAL PATHOLOGIC DIAGNOSIS: Descending left colon polyp: - Hyperplastic polyp, negative for dysplasia. NA MICROSCOPIC EXAMINATION: Histologic sections of all submitted blocks are examined by light microscopy. These findings, together with the gross examination, support the pathologic diagnosis. GROSS DESCRIPTION: The specimen, labeled and designated "Danaeoshisusy, descending left colon polyp," is received in formalin and consists of three dobson soft tissue fragments, ranging from 0.2-0.3 cm. Entirely submitted in (A1). AB (under the direct supervision of a pathologist) The Gross Description was prepared using a voice recognition system. The report was reviewed for accuracy; however, sound-alike word errors, addition and/or deletions may occur. If there is any question about this report, please contact Client Services. ADDITIONAL NOTES: Immunohistochemical and/or in situ hybridization studies if performed in this case included appropriate positive controls that reacted as expected. This test was developed and its performance characteristics determined by [facility]. It has not been cleared or approved by the U.S. Food and Drug Administration. The FDA has determined that such clearance or approval is not necessary. This test is used for clinical purposes. It should not be regarded as investigational or for research. [facility] is certified under the Clinical Laboratory Improvement Amendments of 1988 (CLIA) as qualified to perform high complexity clinical PATIENT NAME: LUNA FORRESTER PATHOLOGY DATE OF : 57 REPORT #: [id number] PHYSICIAN: YAO HILL PCP: GABRIEL AGUILAR MD REPORT IS CONFIDENTIAL AND NOT TO BE RELEASED WITHOUT AUTHORIZATION [address], [place] [address] Signed laboratory testing. PERFORMING LABORATORY: Technical component was performed by [facility], [address] [place] [address] (CLIA# [id number]). Professional interpretation was performed by [facility] - [facility], [address] [place] [address] (CLIA#: [id number]). Diagnostician: Tray Avery MD Pathologist Electronically Signed 03/20/2025 Copies: ~ PATIENT NAME: LUNA FORRESTER PATHOLOGY DATE OF : 57 REPORT #: [id number] PHYSICIAN: YAO HILL PCP: GABRIEL AGUILAR MD REPORT IS CONFIDENTIAL AND NOT TO BE RELEASED WITHOUT AUTHORIZATION
== END 2025-03-17 14:41 | disposition home or self-care (01) ==
LOC: DS 11:58
PROVIDERS: ATTEND Surgery
PROC: 0DBM8ZX Excision of Descending Colon, Via Natural or Artificial Opening Endoscopic, Diagnostic (ICD-10-PCS; principal; 2025-03-17 13:30)
DX: K63.5 Polyp of colon (principal); K57.30 Diverticulosis of large intestine without perforation or abscess without bleeding; K64.8 Other hemorrhoids; K62.5 Hemorrhage of anus and rectum; K52.9 Noninfective gastroenteritis and colitis, unspecified; R63.4 Abnormal weight loss; Z79.4 Long term (current) use of insulin; Z79.84 Long term (current) use of oral hypoglycemic drugs; Z79.899 Other long term (current) drug therapy; Z80.0 Family history of malignant neoplasm of digestive organs; Z88.5 Allergy status to narcotic agent; Z86.0101 Personal history of adenomatous and serrated colon polyps; Z88.7 Allergy status to serum and vaccine; Z88.8 Allergy status to other drugs, medicaments and biological substances
CPT/HCPCS: 99153; G0500; J2250; J3010; J7121